=== PATIENT | male | born 1995 | race African-American/Black ===

== ENCOUNTER 2024-09-05 00:39 | Emergency (ER) | payer SELFPAY ==
[~2024-09-05] VITALS: Ht 182.9 cm; Wt 142.4 kg
[2024-09-05 01:01] VITALS: TEMP 98.3; O2SAT 99
[2024-09-05] MEDS ORDERED: BENZ100C86 MT (02:25)
[2024-09-05 02:49] VITALS: BP 130/78; PULSE 76; RESP 16; O2SAT 99
== END 2024-09-05 01:49 | disposition home or self-care (01) ==
LOC: ER 00:39
DX: J02.9 Acute pharyngitis, unspecified (principal)
CPT/HCPCS: 87070; 87430; 99283